=== PATIENT | male | born 1950 | race Caucasian/White ===

== ENCOUNTER → 2022-10-26 10:19 | Outpatient (CLI) | payer BC, OTHER, SELFPAY ==
--- NOTE | 2022-10-26 | DI.NM.S_ITS ---
PROCEDURE: NM BONE SCAN WHOLE BODY RADIOPHARMACEUTICAL: 21.2 mCi Tc-99m MDP IV. INDICATIONS: Other acute pancreatitis with uninfected necrosis. Sternal pain. TECHNIQUE: Delayed whole-body scintigrams were obtained approximately 3-4 hours after intravenous injection of radiotracer. Anterior and posterior views were acquired from vertex to feet. Additional left and right oblique views of the chest wall were obtained. COMPARISON: None. FINDINGS: There is abnormal uptake in sternum. There are foci of increased activity in the posterior aspect of the left 10th rib, and to a lesser degree the posterior aspect of the right 6th rib. No lesions are identified in skull, clavicles, scapulae, bony pelvis, and visualized shafts of the long bones. There are foci of increased uptake in cervical, thoracic and lumbar spine most likely secondary to degenerative disc and facet disease; early metastasis to spine could be obscured by degenerative changes. There are foci of increased periarticular activity most pronounced in shoulders, wrists, knees, right ankle and both feet, compatible with degenerative/arthritic changes. IMPRESSION: 1. There is abnormal activity in sternum, correlating with sternal pain. If there is history of trauma, this could be caused by sternal fracture. If there is personal history of history of cancer, metastatic disease is a suspicion. Recommend clinical and radiographic correlation. 2. Increased activity in the posterior aspect of the left 10th rib and the posterior aspect of the right 6th rib. Recommend clinical and radiographic correlation. 2. Degenerative and arthritic changes as described. Dictated by: Ivan Macias M.D. on 10/26/2022 at 15:27 Approved by: Ivan Macias M.D. on 10/26/2022 at 15:40
== END ==
PROVIDERS: Family Provider Podiatrist; Referring Provider Family Medicine; Visit Provider Family Medicine
DX: K85.81 Other acute pancreatitis with uninfected necrosis (principal); M54.14 Radiculopathy, thoracic region
CPT/HCPCS: 78306; A9503

== ENCOUNTER → 2023-03-17 08:02 | Outpatient (CLI) | payer OTHER, SELFPAY ==
--- NOTE | 2023-03-17 08:09 | DI.ECHO.S_ITS ---
[facility]---------+ [facility] +---------+ : : [address] : [place] : : : : [id number] : : : : Phone: [phone]+ Echocardiogram Report + + :Name: KOFI HASSAN Study Date: 03/17/2023 Height: 69 in : :[facility] ReadingLocation: Weight: 195 lb : : Gender: Male BSA: 2.0 m2 : :: 1950 Age: 72 yrs BP: 134/73 mmHg: :Reason For Study: CHRONIC SYSTOLIC HEART FAILURE : :Ordering Physician: VERA, : :BETH Performed By: Kellie Ramsey : :Referring: BETH GAMEZ : + + Interpretation Summary The patient was in sinus rhythm with heart rates between 65-70 bpm during the exam. Previously A-fib. The left ventricle is normal in size. The ejection fraction is estimated to be 45-50%. Previous LVEF 35 to 40%. Akinesis of basal to mid inferior wall. In comparison to previous study, improvement in inferior lateral wall, and posterior wall. Basal posterior wall showed Tardokinesis The right ventricle is normal in size and function. No significant valvular pathology seen. The IVC is of normal diameter and collapses greater than 50% with a sniff. This suggests a low right atrial pressure of 3 mm Hg. Procedure: The study quality was technically limited. The study quality was technically adequate. Comparison is made with the echocardiogram of 01/02/2023. The patient was in sinus rhythm with heart rates between 65-70 bpm during the exam. Left Ventricle: The left ventricle is normal in size. There is no thrombus. Trabeculae near apex are visualized. No thrombus is observed. The ejection fraction is estimated to be 45-50%. Left ventricular systolic function has mildly improved compared to the previous exam. Akinesis of basal to mid inferior wall. In comparison to previous study, improvement in inferior lateral wall, and posterior wall. Basal posterior wall showed Tardokinesis. Right Ventricle: The right ventricle is normal in size and function. Atria: The left atrial size is normal. There has been no significant change since the previous study. Mitral Valve: There is mild mitral annular calcification. There is mild mitral regurgitation. There has been no significant change since the previous study. Tricuspid Valve: The tricuspid valve is normal. There is trace tricuspid regurgitation. The right ventricular systolic pressure is estimated to be at least 18 mmHg based on an estimated right atrial pressure of 3 mm Hg. Great Vessels: The IVC is of normal diameter and collapses greater than 50% with a sniff. This suggests a low right atrial pressure of 3 mm Hg. Pericardium/ Pleura There is no pericardial effusion. There is an anterior echo-free space consistent with a fat pad. There is no pleural effusion. MMode/2D Measurements & Calculations LVIDd: 5.6 cm LA A2 area: 20.2 cm2 LVIDs: 4.4 cm LA A4 area: 18.4 cm2 FS: 21.4 % LA length (vol): 5.3 cm IVSd: 0.93 cm LA vol: 59.4 ml LVPWd: 0.95 cm LA vol index: 29.1 ml/m2 LV maynard. diameter/BSA (cm/m^2): 2.7 LV sys. diameter/BSA (cm/m^2): 2.2 IVC diam: 1.1 cm RVD1 (basal): 3.4 cm TAPSE: 1.8 cm Doppler Measurements & Calculations MV E max ian: 53.9 cm/sec TR max ian: 192.5 cm/sec MV A max ian: 81.2 cm/sec TR max P.8 mmHg MV E/A: 0.66 Med Peak E' Ian: 5.4 cm/sec E/E' med: 10.0 Lat Peak E' Ian: 9.4 cm/sec E/E' lat: 5.7 E/e' average: 7.9 MV dec time: 0.35 sec Reading Physician:11:49 AM
== END ==
PROVIDERS: PCP Family Medicine; Referring Provider Internal Medicine Cardiovascular Disease; Visit Provider Internal Medicine Cardiovascular Disease
DX: I34.81 Nonrheumatic mitral (valve) annulus calcification (principal); I34.0 Nonrheumatic mitral (valve) insufficiency; I50.22 Chronic systolic (congestive) heart failure
CPT/HCPCS: 93307

== ENCOUNTER → 2023-06-08 14:47 | Outpatient (CLI) | payer OTHER, SELFPAY | LOC: RESP 14:47 | PROVIDERS: Family Provider Podiatrist; PCP Family Medicine; Referring Provider Internal Medicine Cardiovascular Disease; Visit Provider Internal Medicine Cardiovascular Disease | DX: Z79.899 Other long term (current) drug therapy (principal); J98.8 Other specified respiratory disorders | CPT/HCPCS: 94060; 94726; 94729 ==

== ENCOUNTER → 2023-06-22 15:00 | Outpatient (CLI) | payer OTHER, SELFPAY ==
[2023-06-22 16:32] LABS: Alanine Aminotransferase 26 IU/L (<50); Albumin 3.3 g/dL (3.5-5.0); Alkaline Phosphatase 246 U/L (38-126); Aspartate Aminotransferase 35 IU/L (17-59); BUN Creatinine Ratio 15.4 (6-22); Bilirubin Total 0.7 mg/dL (0.2-1.3); Blood Urea Nitrogen 16 mg/dL (9-20); Calcium 8.6 mg/dL (8.4-10.2); Carbon Dioxide 23 mmol/L (22-32); Chloride 112 mmol/L (98-107); Estimated Glomerular Filt Rate > 60 mL/min (>60); Globulin 3.4 g/dL (1.7-4.1); Glucose 274 mg/dL (80-110); HEMOLYSIS < 15 (0-50); Potassium 4.8 mmol/L (3.4-5.1); Sodium 140 mmol/L (137-145); Total Protein 6.7 g/dL (6.3-8.2)
[2023-06-22 17:04] LABS: TSH w/ Reflex to FT4 2.33 uIU/mL (0.47-4.68)
== END ==
PROVIDERS: Family Provider Podiatrist; PCP Family Medicine; Referring Provider Internal Medicine Cardiovascular Disease; Visit Provider Internal Medicine Cardiovascular Disease
DX: Z79.899 Other long term (current) drug therapy (principal)
CPT/HCPCS: 36415; 80053; 84443